=== PATIENT | male | born 1990 | race Caucasian/White ===

== ENCOUNTER → 2024-12-02 | Outpatient (CLI) | payer OTHER ==
--- NOTE | 2024-12-03 08:48 | MR ---
EXAMINATION TYPE: MR knee LT wo con DATE OF EXAM: 12/02/2024 COMPARISON: Outside left knee x-ray October 31, 2024 HISTORY: Outer left knee pain and locking After lifting injury. TECHNIQUE: Multiplanar, multisequence images of the knee is performed without IV contrast. FINDINGS: MEDIAL MENISCUS: Some increased signal posterior horn does not definitively extend to articular surfa ce. LATERAL MENISCUS: Anterior and posterior horns are intact without tear. CRUCIATE LIGAMENTS: The anterior and posterior cruciate ligaments are intact and unremarkable. COLLATERAL LIGAMENTS: The medial collateral ligament and lateral collateral ligament complex are inta ct and unremarkable. EXTENSOR MECHANISM: Visualized quadriceps and patellar tendons are intact. EFFUSION: No significant suprapatellar joint effusion. POPLITEAL CYST: No popliteal/hyatt cyst. TRICOMPARTMENT SPACES: Tricompartment joint spaces are fairly well-preserved. No significant spurring . CARTILAGE: Tricompartmental articular cartilage is maintained. BONE MARROW SIGNAL: No focal abnormal marrow signal is appreciated. OTHER: No additional significant abnormality is appreciated. IMPRESSION: Possible subtle intrasubstance tear posterior horn of medial meniscus, no full-thickness meniscal or ligamentous tear is seen. [facility], , 12/03/2024 8:46 AM
== END | disposition home or self-care (01) ==
LOC: RADMRIMAIN 19:45
PROVIDERS: ATTEND Orthopaedic Surgery
DX: M25.562 Pain in left knee (principal)